=== PATIENT | male | born 1980 | race Caucasian/White ===

== ENCOUNTER → 2025-01-01 08:42 | Outpatient (BNVA) | payer MEDICAID, SELFPAY | PROVIDERS: PCP Registered Nurse; Visit Provider Registered Nurse | DX: L98.9 Disorder of the skin and subcutaneous tissue, unspecified (principal) | CPT/HCPCS: 88305 ==

== ENCOUNTER → 2025-06-05 10:51 | Outpatient (BNVA) | payer MEDICAID, SELFPAY | PROVIDERS: PCP Registered Nurse; Visit Provider Registered Nurse | DX: K52.29 Other allergic and dietetic gastroenteritis and colitis (principal); R59.1 Generalized enlarged lymph nodes | CPT/HCPCS: 80053; 80061; 82785; 85025; 86001; 86003; 86008 ==

== ENCOUNTER → 2025-06-06 | Outpatient (BNVA) | payer MEDICAID, SELFPAY | PROVIDERS: PCP Registered Nurse; Visit Provider Registered Nurse | DX: R73.9 Hyperglycemia, unspecified (principal) | CPT/HCPCS: 83036 ==